=== PATIENT | female | born 2000 | race Caucasian/White ===

== ENCOUNTER 2024-02-24 00:21 | Emergency (ER) | payer BC, OTHER ==
[~2024-02-24] VITALS: Ht 154.9 cm; Wt 45.8 kg
[2024-02-24] MEDS ORDERED: EPIN0.3P3 IM (02:23)
[2024-02-24] MEDS ORDERED: FAMO40TA7 PO (02:23)
[2024-02-24] MEDS ORDERED: LORA10TA7 PO (02:23)
[2024-02-24] MEDS: predniSONE 20 MG TABLET PO ONE (02:35)
[2024-02-24] MEDS ORDERED: diphenhydrAMINE HCL ELIX 25 MG/10 ML UDC ONE (02:36)
[2024-02-24] MEDS ORDERED: FAMOTIDINE (20 MG) 20 MG TABLET ONE (02:37)
[2024-02-24] MEDS ORDERED: predniSONE 20 MG TABLET ONE (02:37)
[2024-02-24] MEDS: FAMOTIDINE (20 MG) 20 MG TABLET PO ONE (02:43)
[2024-02-24] MEDS: DIPHENHYDRAMINE HCL 12.5 MG/5 ML UDC PO ONE (02:43)
[2024-02-24] MEDS ORDERED: PRED50TA PO (03:15)
[2024-02-24 03:35] VITALS: TEMP 98.4
[2024-02-24 03:42] VITALS: BP 118/77; O2SAT 99
== END 2024-02-24 03:35 | disposition home or self-care (01) ==
LOC: ER 00:24
DX: L50.0 Allergic urticaria (principal); T78.00XA Anaphylactic reaction due to unspecified food, initial encounter; Z79.899 Other long term (current) drug therapy
CPT/HCPCS: 99284; Q0163 ×2; J7512